=== PATIENT | male | born 1980 | race Caucasian/White ===

== ENCOUNTER 2025-09-01 12:13 | Emergency (ER) | payer OTHER, BC ==
[~2025-09-01] VITALS: Ht 177.8 cm; Wt 75.0 kg
[2025-09-01] MEDS ORDERED: SEROQUEL50 MG PO (12:28)
[2025-09-01] MEDS ORDERED: ZOCOR40 MG PO (12:28)
[2025-09-01] MEDS ORDERED: LITHIUM CARBON600 MG PO (12:29)
[2025-09-01] MEDS ORDERED: LAMICTAL200 MG PO (12:29)
[2025-09-01] MEDS ORDERED: CITALOPRAM HBR10 MG PO (12:29)
[2025-09-01 13:58] VITALS: BP 131/89
[2025-09-01] MEDS ORDERED: ACETAMINOPHEN 500 MG TAB PO ONE (14:00)
[2025-09-01] MEDS ORDERED: IBUPROFEN 600 MG TAB PO ONE (14:00)
== END 2025-09-01 14:01 | disposition home or self-care (01) ==
LOC: ED 12:13
DX: S43.101A Unspecified dislocation of right acromioclavicular joint, initial encounter (principal); V19.9XXA Pedal cyclist (driver) (passenger) injured in unspecified traffic accident, initial encounter; Z88.0 Allergy status to penicillin
CPT/HCPCS: 73030; 99283; A9270